=== PATIENT | male | born 1970 | race Two or more races ===

== ENCOUNTER 2020-01-21 12:16 | Outpatient (CLI) | payer MEDICAID ==
[~2020-01-21] VITALS: Ht 167.6 cm; Wt 72.6 kg
[2020-01-21] MEDS ORDERED: PANTOPRAZOLE SO40 MG ORAL (15:09)
--- NOTE | 2020-01-21 22:00 | Consultation ---
DATE OF CONSULTATION: 01/21/2020 CHIEF COMPLAINT: GERD. HISTORY OF PRESENT ILLNESS: This is a very pleasant 49-year-old male who presented to the hospital complaining of epigastric abdominal pain, heartburn symptoms. Apparently he was given omeprazole by prescription by primary care physician without significant improvement. Also complained of some bloating, abdominal pain. Denies any significant weight loss. No nausea. No vomiting. No dysphagia. No odynophagia. PAST MEDICAL HISTORY: 1. Prostate cancer. 2. PAST SURGICAL HISTORY: Prostate cancer surgery and testicular removal. MEDICATIONS: Omeprazole. FAMILY HISTORY: Father had brain cancer and mom had breast cancer. SOCIAL HISTORY: The patient drinks occasionally, but denies any tobacco usage. ALLERGIES: No known drug allergies. REVIEW OF SYSTEMS: A 10-point review of systems was performed and positive for GERD and bloating. Past colonoscopy in 2019, also the patient says he had abdominal ultrasound which has been negative. PHYSICAL EXAMINATION: VITAL SIGNS: Height is 5 feet 6 inches, weight is 160. HEENT: Normocephalic and atraumatic. Sclerae anicteric. NECK: Supple. No evidence of obvious lymphadenopathy. CARDIOVASCULAR: Regular rate and rhythm. Plus S1 and S2. LUNGS: Clear to auscultation bilaterally. ABDOMEN: Positive bowel sounds. Soft and nontender. No rebound. No guarding. No peritoneal sign. EXTREMITIES: No cyanosis. No clubbing. No edema. ASSESSMENT AND PLAN: This is a 49-year-old male with chronic GERD, not responding to PPI, needs an endoscopy. The patient was given instruction for the EGD. Risks and benefits of procedure was explained to him. We are going to try to get authorization and scheduling for endoscopy. Meanwhile, the patient was given Protonix 40 mg twice a day. Cachorro Rush M.D. DR: Karthikeyan JOB#: [id number] CC:
== END 2020-01-21 14:16 | disposition home or self-care (01) ==
LOC: PAN 12:16
DX: K21.9 Gastro-esophageal reflux disease without esophagitis (principal); Z90.79 Acquired absence of other genital organ(s); Z85.46 Personal history of malignant neoplasm of prostate

== ENCOUNTER 2020-02-21 13:00 | Outpatient (CLI) | payer MEDICAID ==
[~2020-02-21 13:00] MED LIST: PANTOPRAZOLE SO40 MG ORAL
--- NOTE | 2020-02-21 13:15 | General Progress Note ---
Assessment/Plan Assessment/Plan: GERD s/p EGD on ppi BID on probiotics add baclofen Qhs Subjective ROS Limited/Unobtainable: Yes Allergies: Coded Allergies: No Known Allergies (Unverified , 01/21/20) Objective General Appearance: alert EENT: normal ENT inspection Neck: supple Cardiovascular: normal rate Respiratory/Chest: lungs clear Abdomen: normal bowel sounds, non tender, soft Extremities: non-tender Cachorro Rush MD February 21, 2020 13:15
[2020-02-21 15:27] VITALS: BP 118/75
== END 2020-02-21 15:00 | disposition home or self-care (01) ==
LOC: PAN 13:00
DX: K21.9 Gastro-esophageal reflux disease without esophagitis (principal)
CPT/HCPCS: 99212